=== PATIENT | male | born 1955 | race Caucasian/White ===

== ENCOUNTER 2016-10-20 16:04 | Observation (INO) | payer OTHER ==
[~2016-10-20] VITALS: Ht 182.9 cm; Wt 120.2 kg
[2016-10-20 20:11] LABS: HEMOGLOBIN 13.9 gm/dl (14.0-17.5); RED BLOOD COUNT 4.72 M/UL (4.20-5.50); WHITE BLOOD COUNT 11.1 K/UL (4.5-11.0)
[2016-10-20 20:31] LABS: BUN/CREATININE RATIO 27 (0-10)
[2016-10-21 06:13] LABS: BUN/CREATININE RATIO 26 (0-10)
[2016-10-21] MEDS ORDERED: COREG 25MG TAB25 MG PO (09:03)
[2016-10-21] MEDS ORDERED: ISOSORBIDE MONO60 MG PO (09:04)
[2016-10-21] MEDS ORDERED: DILTIAZEM 24HR180 M1 PO (09:04)
[2016-10-21] MEDS ORDERED: GLUCOSAMINE &1 EAC1 PO (09:07)
[2016-10-21] MEDS ORDERED: OMEGA RED PO (09:07)
[2016-10-21] MEDS ORDERED: VITAMIN D35000 UNI1 PO (09:08)
[2016-10-21] MEDS ORDERED: ASPIRIN EC81 MG PO (09:08)
[2016-10-21] MEDS ORDERED: FISH OIL 1,0001 EAC1 PO (09:08)
[2016-10-21] MEDS ORDERED: ATORVASTATIN CA80 MG PO (09:09)
[2016-10-21] MEDS ORDERED: PLAVIX 75 MG TA75 MG PO (09:09)
[2016-10-21] MEDS ORDERED: NEURONTIN 400400 MG PO (09:09)
[2016-10-21] MEDS ORDERED: LISINOPRIL10 MG PO (09:09)
[2016-10-21] MEDS ORDERED: ULTRAM50 MG PO (09:10)
[2016-10-21] MEDS ORDERED: NITROSTAT0.4 MG SL (09:10)
[2016-10-21] MEDS ORDERED: FLEXERIL 10 MG10 MG PO (09:10)
[2016-10-21] MEDS ORDERED: IPRAT-ALBUT 0.5-3 ML INH (15:21)
[2016-10-21] MEDS ORDERED: BREO ELLIPTA 11 EACH INH (15:22)
[2016-10-21] MEDS ORDERED: SPIRIVA HANDIH18 MCG INH (15:22)
== END 2016-10-21 15:59 | disposition home or self-care (01) ==
LOC: ER1 16:04 → ZEROF 21:55 → M/S 21:55
PROVIDERS: Emergency Medicine; ADMIT Internal Medicine
DX: J44.1 Chronic obstructive pulmonary disease with (acute) exacerbation (principal); R79.89 Other specified abnormal findings of blood chemistry; I25.10 Atherosclerotic heart disease of native coronary artery without angina pectoris; I10 Essential (primary) hypertension; E78.5 Hyperlipidemia, unspecified; R94.4 Abnormal results of kidney function studies; F17.210 Nicotine dependence, cigarettes, uncomplicated; Z79.82 Long term (current) use of aspirin; Z79.02 Long term (current) use of antithrombotics/antiplatelets; Z79.52 Long term (current) use of systemic steroids; Z79.899 Other long term (current) drug therapy; Z95.5 Presence of coronary angioplasty implant and graft; Z95.1 Presence of aortocoronary bypass graft
CPT/HCPCS: ECHO; 36415; 71010; 80048; 80053; 82550; 82553; 83874; 83880; 84443; 84484; 85025; 93005; 93306; 94640; 94664; 96374; 96375; 99285; G0378; J1940; J2930

== ENCOUNTER → 2020-06-13 | Outpatient (CLI) | payer OTHER ==
[~2020-06-13] MED LIST: ASPIRIN EC81 MG PO; ATORVASTATIN CA80 MG PO; BREO ELLIPTA 11 EACH INH; COREG 25MG TAB25 MG PO; DILTIAZEM 24HR180 M1 PO; FISH OIL 1,0001 EAC1 PO; FLEXERIL 10 MG10 MG PO; GLUCOSAMINE &1 EAC1 PO; IPRAT-ALBUT 0.5-3 ML INH; ISOSORBIDE MONO60 MG PO; LASIX20 MG PO; LISINOPRIL10 MG PO; NEURONTIN 400400 MG PO; NITROSTAT0.4 MG SL; OMEGA RED PO; PLAVIX 75 MG TA75 MG PO; RANEXA1000 MG PO; SPIRIVA HANDIH18 MCG INH; ULTRAM50 MG PO; VENTOLIN HFA 66.7 GM INH; VITAMIN D35000 UNI1 PO
== END ==
LOC: EXRD 08:00
DX: Z13.6 Encounter for screening for cardiovascular disorders (principal); I71.4 Abdominal aortic aneurysm, without rupture
CPT/HCPCS: 93979

== ENCOUNTER → 2020-06-16 | Outpatient (CLI) | payer OTHER | LOC: US 13:00 → EXRD 06-20 13:30 | DX: M79.604 Pain in right leg (principal) | CPT/HCPCS: 93971 ==

== ENCOUNTER → 2021-05-06 | Outpatient (CLI) | payer OTHER | LOC: EXRD 09:42 | DX: I25.10 Atherosclerotic heart disease of native coronary artery without angina pectoris (principal); I65.23 Occlusion and stenosis of bilateral carotid arteries | CPT/HCPCS: 93880 ==

== ENCOUNTER → 2021-10-30 | Outpatient (CLI) | payer OTHER | LOC: EXRD 13:46 | DX: I82.621 Acute embolism and thrombosis of deep veins of right upper extremity (principal); I65.23 Occlusion and stenosis of bilateral carotid arteries | CPT/HCPCS: 93880; 93971 ==